=== PATIENT | male | born 1950 | race Caucasian/White ===

== ENCOUNTER 2017-02-28 14:08 | Inpatient (IN) | payer OTHER ==
[~2017-02-28] VITALS: Ht 182.9 cm; Wt 87.1 kg
[2017-02-28 14:43] LABS: BASOPHILS # (AUTO) 0.3 /CMM (0.0-0.2); BASOPHILS % (AUTO) 2.5 % (0.0-2.0); EOSINOPHILS # (AUTO) 0.4 /CMM (0.0-0.7); EOSINOPHILS % (AUTO) 3.1 % (0.0-6.0); HEMATOCRIT 44 % (39-51); HEMOGLOBIN 14.1 g/dL (13.5-17.5); LYMPHOCYTES % (AUTO) 8.2 % (20.0-44.0); MEAN CORPUSCULAR HEMOGLOBIN 26 PG (26.0-33.0); MEAN CORPUSCULAR HGB CONC 33 g/dl (31.0-36.0); MEAN CORPUSCULAR VOLUME 78 fL (80-96); MONOCYTES # (AUTO) 0.5 /CMM (0.1-1.30); NEUTROPHILS # (AUTO) 9.4 /CMM (1.8-8.9); NEUTROPHILS % (AUTO) 82.2 % (43.0-81.0); PLATELET COUNT (AUTO) 266 /CMM (150-450); RDW COEFFICIENT OF VARIATION 14.4 (11.5-15.0); RED BLOOD CELL COUNT(AUTO) 5.56 MIL/uL (4.5-6.0); WHITE BLOOD COUNT (AUTO) 11.6 K/uL (4.3-11.0)
[2017-02-28 14:53] LABS: CALCIUM, SERUM 9.3 mg/dL (8.5-10.1); CREATININE 0.8 mg/dL (0.6-1.3); POTASSIUM 3.9 mmol/L (3.5-5.1)
[2017-02-28 14:56] LABS: INR 1.06 (0.87-1.13)
[2017-02-28 14:59] LABS: ALBUMIN 2.6 g/dL (3.4-5.0); BILIRUBIN,DIRECT 0.1 mg/dL (0.0-0.2); BILIRUBIN,TOTAL 0.3 mg/dL (0.2-1.0); TOTAL PROTEIN, SERUM 6.7 g/dL (6.4-8.2)
[2017-02-28 15:01] LABS: TROPONIN I 0.018 ng/mL (0.00-0.056)
[2017-02-28] MEDS ORDERED: DOXA8TAB2 PO (15:15)
[2017-02-28] MEDS ORDERED: LISI40TA4 PO (15:15)
[2017-02-28] MEDS ORDERED: HYDR-552 PO (15:15)
[2017-02-28 16:52] LABS: BAND % (MANUAL) 0 % (0.0-5.0); LYMPHOCYTES % (MANUAL) 9 % (16-48); NEUTROPHILS % (MANUAL) 81 (42-76)
[2017-02-28 16:53] LABS: BASOPHILS % (MANUAL) 0 % (0.0-2.0); EOSINOPHILS % (MANUAL) 2 % (0-4); MONOCYTES % (MANUAL) 8 % (0-11.0)
[2017-02-28 18:00] VITALS: BP 127/84
[2017-02-28 20:00] VITALS: BP 124/73
[2017-03-01] VITALS: BP 136/62
[2017-03-01 08:00] VITALS: BP 160/84
[2017-03-01 08:03] LABS: BASOPHILS % (AUTO) 0.5 % (0.0-2.0); EOSINOPHILS # (AUTO) 0.6 /CMM (0.0-0.7); EOSINOPHILS % (AUTO) 6.8 % (0.0-6.0); HEMATOCRIT 41 % (39-51); HEMOGLOBIN 13.6 g/dL (13.5-17.5); LYMPHOCYTES # (AUTO) 0.9 /CMM (0.8-4.8); LYMPHOCYTES % (AUTO) 9.6 % (20.0-44.0); MEAN CORPUSCULAR HEMOGLOBIN 26 PG (26.0-33.0); MEAN CORPUSCULAR HGB CONC 33 g/dl (31.0-36.0); MEAN CORPUSCULAR VOLUME 79 fL (80-96); MONOCYTES # (AUTO) 0.6 /CMM (0.1-1.30); MONOCYTES % (AUTO) 6.6 % (2.0-12.0); NEUTROPHILS # (AUTO) 6.9 /CMM (1.8-8.9); NEUTROPHILS % (AUTO) 76.5 % (43.0-81.0); PLATELET COUNT (AUTO) 217 /CMM (150-450); RDW COEFFICIENT OF VARIATION 15.4 (11.5-15.0); RED BLOOD CELL COUNT(AUTO) 5.22 MIL/uL (4.5-6.0)
[2017-03-01 08:47] LABS: CALCIUM, SERUM 8.6 mg/dL (8.5-10.1); CREATININE 0.8 mg/dL (0.6-1.3); MAGNESIUM 1.8 mg/dL (1.8-2.4); POTASSIUM 4.1 mmol/L (3.5-5.1)
[2017-03-01 16:00] VITALS: BP 164/89
[2017-03-02 07:53] LABS: CALCIUM, SERUM 8.6 mg/dL (8.5-10.1); CREATININE 0.6 mg/dL (0.6-1.3); POTASSIUM 3.4 mmol/L (3.5-5.1)
[2017-03-02 08:00] VITALS: BP 180/97
[2017-03-02 20:00] VITALS: BP 154/91
[2017-03-03] VITALS (11 sets, daily range): BP systolic 149–174; BP diastolic 82–94
[2017-03-03 06:42] LABS: INR 1.04 (0.87-1.13); PROTHROMBIN TIME 11.1 SECS (9.5-12.7)
[2017-03-03 06:49] LABS: BASOPHILS % (AUTO) 0.4 % (0.0-2.0); EOSINOPHILS # (AUTO) 0.3 /CMM (0.0-0.7); EOSINOPHILS % (AUTO) 4.9 % (0.0-6.0); HEMATOCRIT 38 % (39-51); HEMOGLOBIN 12.7 g/dL (13.5-17.5); LYMPHOCYTES # (AUTO) 0.7 /CMM (0.8-4.8); LYMPHOCYTES % (AUTO) 9.5 % (20.0-44.0); MEAN CORPUSCULAR HEMOGLOBIN 26 PG (26.0-33.0); MEAN CORPUSCULAR HGB CONC 34 g/dl (31.0-36.0); MEAN CORPUSCULAR VOLUME 78 fL (80-96); MONOCYTES # (AUTO) 0.3 /CMM (0.1-1.30); MONOCYTES % (AUTO) 4.7 % (2.0-12.0); NEUTROPHILS # (AUTO) 5.6 /CMM (1.8-8.9); NEUTROPHILS % (AUTO) 80.5 % (43.0-81.0); PLATELET COUNT (AUTO) 196 /CMM (150-450); RDW COEFFICIENT OF VARIATION 14.7 (11.5-15.0); RED BLOOD CELL COUNT(AUTO) 4.87 MIL/uL (4.5-6.0); WHITE BLOOD COUNT (AUTO) 6.9 K/uL (4.3-11.0)
[2017-03-03 06:51] LABS: CALCIUM, SERUM 8.5 mg/dL (8.5-10.1); CREATININE 0.7 mg/dL (0.6-1.3); POTASSIUM 3.3 mmol/L (3.5-5.1)
[2017-03-03 09:01] LABS: MAGNESIUM 1.8 mg/dL (1.8-2.4)
[2017-03-03 09:15] LABS: THYROID STIMULATING HORMONE 0.534 uIU/mL (0.358-3.74)
[2017-03-04 04:00] VITALS: BP 172/87
[2017-03-04 08:00] VITALS: BP 168/95
[2017-03-04 08:10] LABS: CALCIUM, SERUM 8.4 mg/dL (8.5-10.1); CREATININE 0.7 mg/dL (0.6-1.3); POTASSIUM 3.2 mmol/L (3.5-5.1)
[2017-03-04 10:09] LABS: IRON, SERUM 38 ug/dl (50-175); TOTAL IRON BINDING CAPACITY 157 ug/dl (250-450)
[2017-03-04 11:00] LABS: FERRITIN 174 ng/mL (8-388)
[2017-03-04 16:00] VITALS: BP 167/85
[2017-03-04 17:12] VITALS: BP 132/76
[2017-03-04 20:00] VITALS: BP 143/76
[2017-03-05 06:30] LABS: BASOPHILS # (AUTO) 0.1 /CMM (0.0-0.2); BASOPHILS % (AUTO) 0.8 % (0.0-2.0); EOSINOPHILS # (AUTO) 0.4 /CMM (0.0-0.7); EOSINOPHILS % (AUTO) 5.4 % (0.0-6.0); HEMATOCRIT 39 % (39-51); MEAN CORPUSCULAR HEMOGLOBIN 26 PG (26.0-33.0); MEAN CORPUSCULAR HGB CONC 33 g/dl (31.0-36.0); MEAN CORPUSCULAR VOLUME 79 fL (80-96); MONOCYTES # (AUTO) 0.4 /CMM (0.1-1.30); MONOCYTES % (AUTO) 6.2 % (2.0-12.0); NEUTROPHILS # (AUTO) 4.8 /CMM (1.8-8.9); NEUTROPHILS % (AUTO) 72.6 % (43.0-81.0); PLATELET COUNT (AUTO) 216 /CMM (150-450); RDW COEFFICIENT OF VARIATION 15.4 (11.5-15.0); WHITE BLOOD COUNT (AUTO) 6.6 K/uL (4.3-11.0)
[2017-03-05 07:00] LABS: CALCIUM, SERUM 8.2 mg/dL (8.5-10.1); CREATININE 0.7 mg/dL (0.6-1.3); MAGNESIUM 1.7 mg/dL (1.8-2.4); POTASSIUM 3.2 mmol/L (3.5-5.1)
[2017-03-05 08:00] VITALS: BP 152/89
[2017-03-05 16:00] VITALS: BP 152/85
[2017-03-05 20:00] VITALS: BP 150/78
[2017-03-06 04:00] VITALS: BP 149/71
[2017-03-06 07:32] LABS: CALCIUM, SERUM 8.7 mg/dL (8.5-10.1); CREATININE 0.6 mg/dL (0.6-1.3); POTASSIUM 3.6 mmol/L (3.5-5.1)
[2017-03-06 08:00] VITALS: BP 161/87
[2017-03-06 16:00] VITALS: BP 166/88
[2017-03-06 20:00] VITALS: BP 120/63
[2017-03-07 04:00] VITALS: BP 142/84
[2017-03-07 07:29] LABS: CALCIUM, SERUM 8.7 mg/dL (8.5-10.1); CREATININE 0.7 mg/dL (0.6-1.3); POTASSIUM 3.4 mmol/L (3.5-5.1)
[2017-03-07 08:00] VITALS: BP_SYST 112; BP_SYST 144; BP_DIAS 66; BP_DIAS 81
[2017-03-07 16:00] VITALS: BP 136/83
[2017-03-07 20:00] VITALS: BP 126/58
[2017-03-07 20:39] VITALS: BP 126/58
[2017-03-08 04:52] VITALS: BP 145/87
[2017-03-08 07:41] LABS: CALCIUM, SERUM 8.7 mg/dL (8.5-10.1); CREATININE 0.6 mg/dL (0.6-1.3); POTASSIUM 3.8 mmol/L (3.5-5.1)
[2017-03-08 08:00] VITALS: BP 138/70
[2017-03-08 16:00] VITALS: BP 134/74
[2017-03-08 20:00] VITALS: BP 143/91
[2017-03-09 04:00] VITALS: BP 163/80
[2017-03-09 06:57] LABS: POTASSIUM 3.4 mmol/L (3.5-5.1)
[2017-03-09 06:58] LABS: CALCIUM, SERUM 8.8 mg/dL (8.5-10.1); CREATININE 0.6 mg/dL (0.6-1.3)
[2017-03-09 08:00] VITALS: BP 150/87
[2017-03-09 12:00] VITALS: BP 144/82
[2017-03-09 16:42] VITALS: BP 131/62
[2017-03-09 20:00] VITALS: BP 145/71
[2017-03-10 04:00] VITALS: BP 148/59
[2017-03-10 07:13] LABS: CALCIUM, SERUM 8.8 mg/dL (8.5-10.1); CREATININE 0.6 mg/dL (0.6-1.3); POTASSIUM 3.7 mmol/L (3.5-5.1)
[2017-03-10 08:00] VITALS: BP 137/76
[2017-03-10] MEDS ORDERED: ASPI-869 PO (12:39)
[2017-03-10] MEDS ORDERED: FOLI1TAB16 PO (12:39)
[2017-03-10] MEDS ORDERED: MULT-24 PO (12:39)
[2017-03-10] MEDS ORDERED: AMLO5TAB2 PO (12:39)
[2017-03-10] MEDS ORDERED: ASCO500T9 PO (12:39)
[2017-03-10] MEDS ORDERED: SILV25CR5 TP (12:39)
[2017-03-10] MEDS ORDERED: NEOM15OI3 TP (12:39)
[2017-03-10] MEDS ORDERED: LACT1CAP72 PO (12:39)
[2017-03-10] MEDS ORDERED: Hydrogel Dressing TP (12:39)
[2017-03-10] MEDS ORDERED: SENN1TAB6 PO (12:39)
[2017-03-10] MEDS ORDERED: ENOX40DI SQ (12:39)
[2017-03-10 16:00] VITALS: BP 135/72
[2017-03-10 20:00] VITALS: BP 134/78
[2017-03-10] MEDS ORDERED: SULF1TAB48 PO (21:15)
[2017-03-10] MEDS ORDERED: SODI473S8 TOP (21:25)
[2017-03-11 04:00] VITALS: BP 128/88
[2017-03-11 06:32] LABS: BASOPHILS # (AUTO) 0.1 /CMM (0.0-0.2); EOSINOPHILS # (AUTO) 0.6 /CMM (0.0-0.7); EOSINOPHILS % (AUTO) 9.6 % (0.0-6.0); HEMATOCRIT 39 % (39-51); HEMOGLOBIN 12.9 g/dL (13.5-17.5); LYMPHOCYTES % (AUTO) 15.4 % (20.0-44.0); MEAN CORPUSCULAR HEMOGLOBIN 26 PG (26.0-33.0); MEAN CORPUSCULAR HGB CONC 33 g/dl (31.0-36.0); MEAN CORPUSCULAR VOLUME 79 fL (80-96); MONOCYTES # (AUTO) 0.4 /CMM (0.1-1.30); MONOCYTES % (AUTO) 6.1 % (2.0-12.0); NEUTROPHILS # (AUTO) 4.5 /CMM (1.8-8.9); NEUTROPHILS % (AUTO) 67.9 % (43.0-81.0); PLATELET COUNT (AUTO) 207 /CMM (150-450); RDW COEFFICIENT OF VARIATION 16.7 (11.5-15.0); RED BLOOD CELL COUNT(AUTO) 4.91 MIL/uL (4.5-6.0); WHITE BLOOD COUNT (AUTO) 6.6 K/uL (4.3-11.0)
[2017-03-11 06:50] LABS: CALCIUM, SERUM 8.8 mg/dL (8.5-10.1); CREATININE 0.8 mg/dL (0.6-1.3); POTASSIUM 3.9 mmol/L (3.5-5.1)
[2017-03-11 08:00] VITALS: BP 142/80
[2017-03-11 16:00] VITALS: BP 130/74
== END 2017-03-11 20:30 | DRG 853 ==
LOC: ER 14:09 → TELE1 16:46 → MEDSG1 03-01 08:35
PROVIDERS: ADMIT Nurse Practitioner Acute Care; ATTEND Nurse Practitioner Acute Care
PROC: 0KBN0ZZ Excision of Right Hip Muscle, Open Approach (ICD-10-PCS; 2017-03-03)
PROC: 0JB90ZZ Excision of Buttock Subcutaneous Tissue and Fascia, Open Approach (ICD-10-PCS; 2017-03-03)
PROC: 0KBP0ZZ Excision of Left Hip Muscle, Open Approach (ICD-10-PCS; principal; 2017-03-03 14:31)
DX: A41.9 Sepsis, unspecified organism (principal); L89.154 Pressure ulcer of sacral region, stage 4; L89.122 Pressure ulcer of left upper back, stage 2; E46 Unspecified protein-calorie malnutrition; I96 Gangrene, not elsewhere classified; L89.313 Pressure ulcer of right buttock, stage 3; G82.20 Paraplegia, unspecified; I69.354 Hemiplegia and hemiparesis following cerebral infarction affecting left non-dominant side; I69.351 Hemiplegia and hemiparesis following cerebral infarction affecting right dominant side; L89.320 Pressure ulcer of left buttock, unstageable; I10 Essential (primary) hypertension; Z88.0 Allergy status to penicillin; Z79.899 Other long term (current) drug therapy; E87.6 Hypokalemia; K80.20 Calculus of gallbladder without cholecystitis without obstruction; M48.06 Spinal stenosis, lumbar region; M53.3 Sacrococcygeal disorders, not elsewhere classified; N28.89 Other specified disorders of kidney and ureter; N40.0 Benign prostatic hyperplasia without lower urinary tract symptoms; Z59.0 Homelessness; Z79.82 Long term (current) use of aspirin; Z99.3 Dependence on wheelchair; F17.200 Nicotine dependence, unspecified, uncomplicated; K74.60 Unspecified cirrhosis of liver; E11.65 Type 2 diabetes mellitus with hyperglycemia; L89.621 Pressure ulcer of left heel, stage 1; L89.611 Pressure ulcer of right heel, stage 1; M51.36 Other intervertebral disc degeneration, lumbar region; S90.414A Abrasion, right lesser toe(s), initial encounter; X58.XXXA Exposure to other specified factors, initial encounter; Y92.129 Unspecified place in nursing home as the place of occurrence of the external cause
CPT/HCPCS: 36415; 70450-TC; 71010-TC; 72131-TC; 76770-TC; 80048-TC; 80061-TC; 80076-TC; 80202-TC; 82272-TC; 82728-TC; 83540-TC; 83605-TC; 83735-TC; 84100-TC; 84134-TC; 84439-TC; 84443-TC; 84484-TC; 85025-TC; 85610-TC; 85730-TC; 87040-TC; 87070-TC; 87081-TC; 93307-TC; A4216; A4606; A6209; A6248; A6253; A6402; A6403; J0360; J1650; J2185; J2250; J2270; J2543; J2704; J3010; J3370; J3475; J3480; J3490; J7030; J7050; J7060; Q9967; Z7610